=== PATIENT | female | born 1995 | race Caucasian/White ===

== ENCOUNTER 2016-12-21 16:39 | Emergency (ER) | payer SELFPAY ==
[~2016-12-21] VITALS: Ht 152.4 cm; Wt 45.4 kg
--- NOTE | 2016-12-21 17:10 | ED General ---
General Chief Complaint: Abdominal/GI Problems Stated Complaint: DIZZINESS Nursing Triage Note: PT STATES SHE WAS 'PARTYING HARDCORE' LAST WEEK DOING METHAMPHETAMINES AND DRINKING. STATES SHE STOPPED LAST WEEK AND NOW SHE IS HAVING ABOMINAL PAIN, HEADACHES, AND DIZZINESS. Nursing Sepsis Screen: No Definite Risk Source of Information: Patient Exam Limitations: No Limitations History of Present Illness Time Seen by Provider: 17:05 Initial Comments The patient is a 21-year-old white female who presents with complaints of headache blurred vision and abdominal distress. She and her electric appliance installer reports that she was partying hard all of last week. This included alcohol excess, meth , and other drugs. Her electric appliance installer stated that she seemed to be getting out of control and he cut her off abruptly Saturday night. She is now begun to complain of headache and blurred vision. This is a primary reason that she came here. She also had abdominal distress which seems to be getting better. She last had a bowel movement 4 days ago. Timing/Duration: 4-5 Days Associated Systoms: Nausea/Vomiting Allergies and Home Medications Allergies Coded Allergies: Penicillins (Verified Allergy, Unknown, 12/21/16) Constitutional: see HPI, dizziness Respiratory: no symptoms reported Cardiovascular: no symptoms reported Gastrointestinal: abdominal pain, constipation, loss of appetite, nausea Genitourinary: no symptoms reported Musculoskeletal: no symptoms reported Skin: no symptoms reported Psychiatric/Neurological: No Symptoms Reported Hematologic/Lymphatic: No Symptoms Reported Immunological/Allergic: no symptoms reported Past Wlipdeh-Dzjdbq-Ubpugw Hx Patient Social History Alcohol Use: Regular Use Recreational Drug Use: Yes Drug of Choice: METHAMPHETAMINE Smoking Status: Current Everyday Smoker Type Used: Cigarettes Recent Foreign Travel: No Contact w/Someone Who Travel: No Recent Infectious Disease Expo: No Physical Exam Vital Signs Vital Sign - Last 12Hours 12/21/16 16:50 Temp 100.6 Pulse 110 Resp 16 B/P (MAP) 120/67 Pulse Ox 99 O2 Delivery Room Air Capillary Refill : Less Than 3 Seconds General Appearance: Mild Distress Eyes: Bilateral Eye Normal Inspection HEENT: Normal ENT Inspection Neck: Normal Inspection Respiratory: Chest Non Tender, Lungs Clear, Normal Breath Sounds, No Accessory Muscle Use, No Respiratory Distress Cardiovascular: Regular Rate, Rhythm, No Edema, No Gallop, No JVD, No Murmur, Normal Peripheral Pulses Gastrointestinal: Normal Bowel Sounds, No Organomegaly, No Pulsatile Mass, Non Tender, Soft Extremity: Normal Capillary Refill, Normal Inspection, Normal Range of Motion, Non Tender, No Calf Tenderness, No Pedal Edema Neurologic/Psychiatric: Alert, Oriented x3, No Motor/Sensory Deficits, Normal Mood/Affect Skin: Normal Color, Warm/Dry Lymphatic: No Adenopathy Progress/Results/Core Measures Results/Orders Lab Results Laboratory Tests Test 12/21/16 17:20 Range/Units White Blood Count 14.0 H 4.3-11.0 10^3/uL Red Blood Count 4.24 L 4.35-5.85 10^6/uL Hemoglobin 12.6 11.5-16.0 G/DL Hematocrit 37 35-52 % Mean Corpuscular Volume 88 80-99 FL Mean Corpuscular Hemoglobin 30 25-34 PG Mean Corpuscular Hemoglobin Concent 34 32-36 G/DL Red Cell Distribution Width 12.7 10.0-14.5 % Platelet Count 168 130-400 10^3/uL Mean Platelet Volume 10.2 7.4-10.4 FL Neutrophils (%) (Auto) 85 H 42-75 % Lymphocytes (%) (Auto) 8 L 12-44 % Monocytes (%) (Auto) 7 0-12 % Eosinophils (%) (Auto) 0 0-10 % Basophils (%) (Auto) 0 0-10 % Neutrophils # (Auto) 11.8 H 1.8-7.8 X 10^3 Lymphocytes # (Auto) 1.1 1.0-4.0 X 10^3 Monocytes # (Auto) 1.0 0.0-1.0 X 10^3 Eosinophils # (Auto) 0.1 0.0-0.3 10^3/uL Basophils # (Auto) 0.0 0.0-0.1 10^3/uL Urine Color YELLOW Urine Clarity SLIGHTLY CLOUDY Urine pH 9 5-9 Urine Specific Trent 1.015 L 1.016-1.022 Urine Protein NEGATIVE NEGATIVE Urine Glucose (UA) NEGATIVE NEGATIVE Urine Ketones NEGATIVE NEGATIVE Urine Nitrite NEGATIVE NEGATIVE Urine Bilirubin NEGATIVE NEGATIVE Urine Urobilinogen NORMAL NORMAL MG/DL Urine Leukocyte Esterase 2+ H NEGATIVE Urine RBC (Auto) 2+ H NEGATIVE Urine RBC 2-5 H /HPF Urine WBC 2-5 /HPF Urine Squamous Epithelial Cells 10-25 H /HPF Urine Crystals NONE /LPF Urine Amorphous Sediment MOD JIM PHOSPHATE H /LPF Urine Bacteria TRACE /HPF Urine Casts NONE /LPF Urine Mucus NEGATIVE /LPF Urine Culture Indicated NO Sodium Level 136 135-145 MMOL/L Potassium Level 3.5 L 3.6-5.0 MMOL/L Chloride Level 103 98-107 MMOL/L Carbon Dioxide Level 23 21-32 MMOL/L Anion Gap 10 5-14 MMOL/L Blood Urea Nitrogen 9 7-18 MG/DL Creatinine 0.76 0.60-1.30 MG/DL Estimat Glomerular Filtration Rate > 60 BUN/Creatinine Ratio 12 Glucose Level 93 70-105 MG/DL Calcium Level 9.0 8.5-10.1 MG/DL Total Bilirubin 0.4 0.1-1.0 MG/DL Aspartate Amino Transf (AST/SGOT) 13 5-34 U/L Alanine Aminotransferase (ALT/SGPT) 8 0-55 U/L Alkaline Phosphatase 50 40-136 U/L Total Protein 7.1 6.4-8.2 G/DL Albumin 4.1 3.2-4.5 G/DL Urine Opiates Screen NEGATIVE NEGATIVE Urine Oxycodone Screen NEGATIVE NEGATIVE Urine Methadone Screen NEGATIVE NEGATIVE Urine Propoxyphene Screen NEGATIVE NEGATIVE Urine Barbiturates Screen NEGATIVE NEGATIVE Ur Tricyclic Antidepressants Screen NEGATIVE NEGATIVE Urine Phencyclidine Screen NEGATIVE NEGATIVE Urine Amphetamines Screen NEGATIVE NEGATIVE Urine Methamphetamines Screen NEGATIVE NEGATIVE Urine Benzodiazepines Screen NEGATIVE NEGATIVE Urine Cocaine Screen NEGATIVE NEGATIVE Urine Cannabinoids Screen NEGATIVE NEGATIVE Serum Alcohol < 10 <10 MG/DL My Orders Orders - STEVE PIRES MD Alcohol (12/21/16 17:04) Cbc With Automated Diff (12/21/16 17:04) Comprehensive Metabolic Panel (12/21/16 17:04) Drug Screen Stat (Urine) (12/21/16 17:04) Ua Culture If Indicated (12/21/16 17:04) Abdomen/Kub 1view (12/21/16 17:04) Vital Signs/I&O Vital Sign - Last 12Hours 12/21/16 16:50 Temp 100.6 Pulse 110 Resp 16 B/P (MAP) 120/67 Pulse Ox 99 O2 Delivery Room Air Blood Pressure Mean: 84 Departure Communication Progress Notes KUB showed considerable stool. There is marginal hypokalemia. Impression Impression: Primary Impression: headache Additional Impression: constipation Disposition: 01 HOME, SELF-CARE Condition: Stable/Unchanged Departure-Patient Inst. Decision time for Depature: 18:03 Referrals: NO,LOCAL PHYSICIAN (PCP) Primary Care Physician Patient Instructions: No Instuctions Given Add. Discharge Instructions: All discharge instructions reviewed with patient and/or family. Voiced understanding. Refrain from alcohol and meth. 2.MiraLAX which can be purchased [id number] to induce bowel movement 3.take Aleve 2 tablets 3 times daily for headache 4.plenty of liquids and had vitamin and fruit drinks STEVE PIRES MD Dec 21, 2016 17:10
[2016-12-21 17:28] LABS: BILIRUBIN,URINE NEGATIVE (NEGATIVE); KETONES,URINE NEGATIVE (NEGATIVE); LEUKOCYTE ESTERASE ,URINE 2+ (NEGATIVE); NITRITE,URINE NEGATIVE (NEGATIVE); PH,URINE 9 (5-9); PROTEIN,URINE NEGATIVE (NEGATIVE); UROBILINOGEN,URINE NORMAL (NORMAL)
[2016-12-21 17:30] LABS: BASOPHILS % (AUTO) 0 % (0-10); EOSINOPHILS # (AUTO) 0.1 10^3/uL (0.0-0.3); EOSINOPHILS % (AUTO) 0 % (0-10); LYMPHOCYTES # (AUTO) 1.1 X 10^3 (1.0-4.0); LYMPHOCYTES % (AUTO) 8 % (12-44); MEAN CORPUSCULAR HEMOGLOBIN 30 PG (25-34); MEAN CORPUSCULAR HGB CONC 34 G/DL (32-36); MEAN CORPUSCULAR VOLUME 88 FL (80-99); MEAN PLATELET VOLUME 10.2 FL (7.4-10.4); MONOCYTES % (AUTO) 7 % (0-12); NEUTROPHILS # (AUTO) 11.8 X 10^3 (1.8-7.8); NEUTROPHILS % (AUTO) 85 % (42-75); PLATELET COUNT 168 10^3/uL (130-400); RED BLOOD COUNT 4.24 10^6/uL (4.35-5.85); RED CELL DISTRIBUTION WIDTH 12.7 % (10.0-14.5)
--- NOTE | 2016-12-21 17:39 | Diagnostic Imaging Report ---
EXAMINATION: Abdominal radiographs, single view. DATE: 12/21/2016. CLINICAL INDICATION: 21-year-old female, periumbilical abdominal pain. No bowel movement in four days. COMPARISON: None. COMMENTS: There is a moderate to large volume colonic stool. There are mildly distended gas-filled segments of large bowel in the region of the splenic flexure measuring up to roughly 5 cm in diameter. There are no abnormally distended gas-filled segments of small bowel. 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 The upper abdomen is not entirely included in the [id number]. There is no identified free intraperitoneal air on supine assessment, pneumatosis, or portal venous gas. There is no identified abnormal radiodensity overlying the expected positions of the kidneys or ureters. IMPRESSION: 1. Moderate to large volume colonic stool. 2. No identified acute abdominal radiographic abnormality. Dictated by: Dictated on workstation # [id number]
[2016-12-21 17:48] LABS: ALANINE AMINOTRANSFERASE 8 U/L (0-55); ALBUMIN 4.1 G/DL (3.2-4.5); ANION GAP 10 MMOL/L (5-14); ASPARTATE AMINO TRANSFERASE 13 U/L (5-34); BILIRUBIN,TOTAL 0.4 MG/DL (0.1-1.0); BLOOD UREA NITROGEN 9 MG/DL (7-18); BUN/CREATININE RATIO 12; CARBON DIOXIDE 23 MMOL/L (21-32); CHLORIDE 103 MMOL/L (98-107); CREATININE SERUM 0.76 MG/DL (0.60-1.30); GFR ESTIMATED > 60; GLUCOSE 93 MG/DL (70-105); POTASSIUM 3.5 MMOL/L (3.6-5.0); SODIUM 136 MMOL/L (135-145); TOTAL PROTEIN 7.1 G/DL (6.4-8.2)
[2016-12-21 17:53] LABS: ALCOHOL < 10 MG/DL (<10)
[2016-12-21 18:16] VITALS: BP 120/67
== END 2016-12-21 18:15 | disposition home or self-care (01) ==
LOC: ER 16:42
DX: R51 Headache (principal); K59.00 Constipation, unspecified
CPT/HCPCS: 36415; 74000; 80053; 80306; 80320; 81000; 84703; 85025; 99283